=== PATIENT | male | born 1950 | race Caucasian/White ===

== ENCOUNTER 2021-04-15 15:10 | Inpatient (IN) | payer OTHER ==
[~2021-04-15] VITALS: Ht 185.4 cm; Wt 89.1 kg
[2021-04-15 17:49] VITALS: BP 151/116
[2021-04-15] MEDS ORDERED: HYDR-826 PO (17:54)
[2021-04-15] MEDS ORDERED: SILD50TA PO (17:54)
[2021-04-15] MEDS ORDERED: DOCU250C9 PO (17:54)
[2021-04-15] MEDS ORDERED: TIOT18CA INH (17:54)
[2021-04-15] MEDS ORDERED: POLY17PO50 PO (17:54)
[2021-04-15] MEDS ORDERED: ALBU0.63 NEB (17:54)
[2021-04-15] MEDS ORDERED: BUDE10.2 INH (17:54)
[2021-04-15] MEDS ORDERED: FLUT1POW2 NAS (17:54)
[2021-04-15] MEDS ORDERED: IPRA3AMP30 INH (17:56)
[2021-04-15 18:29] VITALS: BP 146/101
[2021-04-15] MEDS ORDERED: POLYETHYLENE GLYCOL 17 GM PACKET PO PRN (20:30)
[2021-04-15] MEDS ORDERED: CEFTRIAXONE 1,000 MG in DEXTROSE 5% 50 ML IVPB SCH (20:30)
[2021-04-15] MEDS: BUDESONIDE 0.5 MG/2 ML INHA INH SCH (20:30)
[2021-04-15] MEDS ORDERED: IPRATROPIUM 0.5 MG/2.5 ML INHA HHN SCH (20:30)
[2021-04-15] MEDS ORDERED: ENALAPRILAT 1.25 MG/ML, 2ML IVPush PRN (20:30)
[2021-04-15] MEDS ORDERED: ONDANSETRON 2MG/ML, 2ML IVPush PRN (20:30)
[2021-04-15] MEDS ORDERED: THIAMINE 200 MG in SODIUM CHLORIDE 0.9% 50 ML IV ONE (20:30)
[2021-04-15] MEDS ORDERED: ACETAMINOPHEN 325 MG TABLET PO PRN (20:30)
[2021-04-15] MEDS: DOXYCYCLINE 100MG TABLET PO SCH (22:25)
[2021-04-15] MEDS: FAMOTIDINE 20 MG TABLET PO SCH (22:25)
[2021-04-15] MEDS: methylPREDNISolone SOD SUCC 125 MG/2 ML IVPush SCH (22:25)
[2021-04-15] MEDS: ENOXAPARIN 40 MG/0.4 ML SQ SCH (22:26)
[2021-04-16] VITALS (7 sets, daily range): BP systolic 120–196; BP diastolic 82–113
[2021-04-16] MEDS: morphine SULFATE 10 MG/ML, 1ML IVPush PRN (02:25)
[2021-04-16] MEDS: methylPREDNISolone SOD SUCC 125 MG/2 ML IVPush SCH ×4 (02:30→20:30)
[2021-04-16 05:27] LABS: BASOPHILS % (AUTO) 0 % (0-1); EOSINOPHILS % (AUTO) 0 % (1-7); LYMPHOCYTES % (AUTO) 12 % (22-44); MEAN CORPUSCULAR HEMOGLOBIN 33.1 pg (27.5-34.5); MEAN CORPUSCULAR HGB CONC 34.1 g/dL (33.2-36.2); MEAN PLATELET VOLUME 7.8 fL (7.4-10.4); MONOCYTES % (AUTO) 3 % (2-9); NEUTROPHILS % (AUTO) 85 % (42-75); PLATELET COUNT 243 x10^3/uL (130-400); RED CELL DISTRIBUTION WIDTH 13.5 % (9.4-14.8)
[2021-04-16 05:36] LABS: CALCIUM 8.8 mg/dL (8.5-10.1)
[2021-04-16 05:38] LABS: CREATININE 0.99 mg/dL (0.7-1.3)
[2021-04-16 05:53] LABS: ANION GAP 5 mmol/L (5-15); CHLORIDE 101 mmol/L (98-107)
[2021-04-16] MEDS: ALBUTEROL/IPRATROPIUM 2.5MG/0.5MG, 3 ML NPPB SCH ×4 (06:50→20:20)
[2021-04-16] MEDS: BUDESONIDE 0.5 MG/2 ML INHA INH SCH (06:50)
[2021-04-16] MEDS: FOLIC ACID 1 MG TABLET PO SCH (07:47)
[2021-04-16] MEDS: FAMOTIDINE 20 MG TABLET PO SCH ×2 (07:47→21:00)
[2021-04-16] MEDS: THIAMINE 100MG TABLET PO/NG SCH (07:47)
[2021-04-16] MEDS: LOSARTAN 25MG TABLET PO SCH (07:47)
[2021-04-16] MEDS: DOXYCYCLINE 100MG TABLET PO SCH (07:47)
[2021-04-16] MEDS: MULTIVITAMIN 1 TABLET PO SCH (07:47)
[2021-04-16] MEDS ORDERED: TIOTROPIUM BROMIDE 18 MCG/INH INH SCH (09:00)
[2021-04-16] MEDS ORDERED: ENALAPRILAT 1.25 MG/ML, 1ML ONE (09:07)
[2021-04-16] MEDS ORDERED: OMNIPAQUE 350 MG/ML, 75ML BOTTLE ONE (10:46)
[2021-04-16] MEDS: ENOXAPARIN 40 MG/0.4 ML SQ SCH (20:30)
[2021-04-17 01:38] VITALS: BP 124/87
[2021-04-17] MEDS: methylPREDNISolone SOD SUCC 125 MG/2 ML IVPush SCH ×2 (02:30→16:30)
[2021-04-17] MEDS: ALBUTEROL/IPRATROPIUM 2.5MG/0.5MG, 3 ML NPPB SCH ×3 (07:00→15:50)
[2021-04-17] MEDS ORDERED: BUDESONIDE 0.5 MG/2 ML INHA INH SCH (09:00)
[2021-04-17 09:59] LABS: BASOPHILS % (AUTO) 0 % (0-1); EOSINOPHILS % (AUTO) 0 % (1-7); LYMPHOCYTES % (AUTO) 6 % (22-44); MEAN CORPUSCULAR HEMOGLOBIN 33.9 pg (27.5-34.5); MEAN CORPUSCULAR HGB CONC 34.6 g/dL (33.2-36.2); MEAN PLATELET VOLUME 8.2 fL (7.4-10.4); MONOCYTES % (AUTO) 3 % (2-9); NEUTROPHILS % (AUTO) 91 % (42-75); PLATELET COUNT 263 x10^3/uL (130-400); RED BLOOD COUNT 4.38 x10^6/uL (4.38-5.82); RED CELL DISTRIBUTION WIDTH 13.6 % (9.4-14.8)
[2021-04-17 10:02] LABS: ALANINE AMINOTRANSFERASE 32 U/L (12-78); ALBUMIN 3.5 g/dL (3.4-5.0); ANION GAP 7 mmol/L (5-15); CALCIUM 9.2 mg/dL (8.5-10.1); CHLORIDE 101 mmol/L (98-107); CREATININE 1.19 mg/dL (0.7-1.3)
[2021-04-17 10:04] LABS: ALKALINE PHOSPHATASE 60 U/L (45-117); BILIRUBIN,TOTAL 0.6 mg/dL (0.2-1.0); TOTAL PROTEIN 7.6 g/dL (6.4-8.2)
[2021-04-17] MEDS: MULTIVITAMIN 1 TABLET PO SCH (10:47)
[2021-04-17] MEDS: LOSARTAN 25MG TABLET PO SCH (10:47)
[2021-04-17] MEDS: AZITHROMYCIN 250 MG TABLET PO SCH (10:47)
[2021-04-17] MEDS: FOLIC ACID 1 MG TABLET PO SCH (10:47)
[2021-04-17] MEDS: THIAMINE 100MG TABLET PO/NG SCH (10:48)
[2021-04-17] MEDS: FAMOTIDINE 20 MG TABLET PO SCH ×2 (10:48→20:22)
[2021-04-17 10:50] VITALS: BP 120/84
[2021-04-17] MEDS ORDERED: GUAIFENESIN 100 MG/5 ML, 10ML UDC ONE (10:58)
[2021-04-17] MEDS: GUAIFENESIN 100 MG/5 ML, 5ML UDC PO SCH ×3 (11:00→20:22)
[2021-04-17] MEDS: morphine SULFATE 10 MG/ML, 1ML IVPush PRN (11:02)
[2021-04-17 13:57] VITALS: BP 124/86
[2021-04-17 20:05] VITALS: BP 112/75
[2021-04-17] MEDS: ENOXAPARIN 40 MG/0.4 ML SQ SCH (20:22)
[2021-04-17] MEDS: BENZONATATE 100 MG CAPSULE PO SCH (22:02)
[2021-04-18] MEDS: methylPREDNISolone SOD SUCC 125 MG/2 ML IVPush SCH ×3 (00:07→16:30)
[2021-04-18 00:13] VITALS: BP 133/82
[2021-04-18] MEDS: morphine SULFATE 10 MG/ML, 1ML IVPush PRN (02:29)
[2021-04-18] MEDS ORDERED: GUAIFENESIN 100 MG/5 ML, 10ML UDC ONE (03:08)
[2021-04-18] MEDS: GUAIFENESIN 100 MG/5 ML, 5ML UDC PO PRN ×2 (03:09→12:16)
[2021-04-18 05:58] LABS: BASOPHILS % (AUTO) 0 % (0-1); EOSINOPHILS % (AUTO) 0 % (1-7); LYMPHOCYTES % (AUTO) 6 % (22-44); MEAN CORPUSCULAR HEMOGLOBIN 33.5 pg (27.5-34.5); MEAN PLATELET VOLUME 8.1 fL (7.4-10.4); MONOCYTES % (AUTO) 3 % (2-9); NEUTROPHILS % (AUTO) 91 % (42-75); PLATELET COUNT 259 x10^3/uL (130-400); RED BLOOD COUNT 4.49 x10^6/uL (4.38-5.82); RED CELL DISTRIBUTION WIDTH 13.7 % (9.4-14.8)
[2021-04-18 06:06] LABS: ALANINE AMINOTRANSFERASE 32 U/L (12-78); ALBUMIN 3.5 g/dL (3.4-5.0); ANION GAP 7 mmol/L (5-15); CALCIUM 8.8 mg/dL (8.5-10.1); CHLORIDE 100 mmol/L (98-107)
[2021-04-18 06:09] LABS: ALKALINE PHOSPHATASE 58 U/L (45-117); BILIRUBIN,TOTAL 0.6 mg/dL (0.2-1.0); TOTAL PROTEIN 7.6 g/dL (6.4-8.2)
[2021-04-18] MEDS: ALBUTEROL/IPRATROPIUM 2.5MG/0.5MG, 3 ML NPPB SCH ×4 (07:00→19:33)
[2021-04-18 09:00] VITALS: BP 109/76
[2021-04-18] MEDS: AZITHROMYCIN 250 MG TABLET PO SCH (10:09)
[2021-04-18] MEDS: MULTIVITAMIN 1 TABLET PO SCH (10:10)
[2021-04-18] MEDS: THIAMINE 100MG TABLET PO/NG SCH (10:10)
[2021-04-18] MEDS: LOSARTAN 25MG TABLET PO SCH (10:10)
[2021-04-18] MEDS: FOLIC ACID 1 MG TABLET PO SCH (10:10)
[2021-04-18] MEDS: BENZONATATE 100 MG CAPSULE PO SCH ×3 (10:10→20:52)
[2021-04-18] MEDS: FAMOTIDINE 20 MG TABLET PO SCH ×2 (10:11→20:52)
[2021-04-18] MEDS: BUDESONIDE 0.5 MG/2 ML INHA INH SCH ×2 (10:30→19:33)
[2021-04-18 15:39] VITALS: BP 112/80
[2021-04-18 20:48] VITALS: BP 108/72
[2021-04-18] MEDS: ENOXAPARIN 40 MG/0.4 ML SQ SCH (20:52)
[2021-04-19] MEDS: methylPREDNISolone SOD SUCC 125 MG/2 ML IVPush SCH ×2 (00:48→09:31)
[2021-04-19 00:51] VITALS: BP 120/83
[2021-04-19 06:06] LABS: BASOPHILS % (AUTO) 0 % (0-1); EOSINOPHILS % (AUTO) 0 % (1-7); LYMPHOCYTES % (AUTO) 8 % (22-44); MEAN CORPUSCULAR HEMOGLOBIN 33.4 pg (27.5-34.5); MEAN CORPUSCULAR HGB CONC 34.1 g/dL (33.2-36.2); MONOCYTES % (AUTO) 5 % (2-9); NEUTROPHILS % (AUTO) 87 % (42-75); PLATELET COUNT 234 x10^3/uL (130-400); RED BLOOD COUNT 4.28 x10^6/uL (4.38-5.82); RED CELL DISTRIBUTION WIDTH 13.7 % (9.4-14.8)
[2021-04-19 06:18] LABS: ALANINE AMINOTRANSFERASE 26 U/L (12-78); CALCIUM 8.6 mg/dL (8.5-10.1)
[2021-04-19 06:21] LABS: ALKALINE PHOSPHATASE 49 U/L (45-117); BILIRUBIN,TOTAL 0.4 mg/dL (0.2-1.0); TOTAL PROTEIN 6.8 g/dL (6.4-8.2)
[2021-04-19 06:51] LABS: ANION GAP 5 mmol/L (5-15); CHLORIDE 98 mmol/L (98-107)
[2021-04-19] MEDS: ALBUTEROL/IPRATROPIUM 2.5MG/0.5MG, 3 ML NPPB SCH ×3 (07:00→14:24)
[2021-04-19] MEDS: morphine SULFATE 10 MG/ML, 1ML IVPush PRN (07:22)
[2021-04-19 09:00] VITALS: BP 129/92
[2021-04-19] MEDS: BUDESONIDE 0.5 MG/2 ML INHA INH SCH (09:00)
[2021-04-19] MEDS: FAMOTIDINE 20 MG TABLET PO SCH (09:29)
[2021-04-19] MEDS: GUAIFENESIN 100 MG/5 ML, 5ML UDC PO PRN (09:29)
[2021-04-19] MEDS: AZITHROMYCIN 250 MG TABLET PO SCH (09:29)
[2021-04-19] MEDS: MULTIVITAMIN 1 TABLET PO SCH (09:29)
[2021-04-19] MEDS: BENZONATATE 100 MG CAPSULE PO SCH (09:30)
[2021-04-19] MEDS: FOLIC ACID 1 MG TABLET PO SCH (09:30)
[2021-04-19] MEDS: THIAMINE 100MG TABLET PO/NG SCH (09:30)
[2021-04-19] MEDS: LOSARTAN 25MG TABLET PO SCH (09:30)
[2021-04-19] MEDS ORDERED: LOSA25TA25 PO (14:47)
[2021-04-19 15:01] VITALS: BP 144/89
== END 2021-04-19 16:44 | disposition home or self-care (01) | DRG 190 ==
LOC: 4WST 17:46
PROVIDERS: ADMIT Family Medicine; ATTEND Hospitalist
DX: J44.1 Chronic obstructive pulmonary disease with (acute) exacerbation (principal); J96.21 Acute and chronic respiratory failure with hypoxia; Z66 Do not resuscitate; F10.20 Alcohol dependence, uncomplicated; K59.00 Constipation, unspecified; Z99.81 Dependence on supplemental oxygen; Z87.891 Personal history of nicotine dependence
CPT/HCPCS: 36415; 84145; J7626; J7644; 71260; 80048; 80053; 83036; 83735; 85025; 87070; 87205; 93005; 93306; 94640; G0378; J0696; J1650; J3411; Q9967; J2270; J2930; Q0177